=== PATIENT | female | born 1995 | race Caucasian/White ===

== ENCOUNTER 2017-09-13 14:51 | Emergency (ER) | payer BC ==
--- NOTE | 2017-09-13 15:52 | EDPHY ---
H & P Time Seen by Provider: 09/13/17 15:40 HPI/ROS: CHIEF COMPLAINT: Abdominal pain, can't find IUD string HISTORY OF PRESENT ILLNESS: 22-year-old female presents to the emergency department by private vehicle complaining of some lower abdominal discomfort. She has had an IUD for last 4 years and has not checked for the strings in it least a month. She states that she recently had intercourse with her and then check for the strings and could not find them. She states earlier today she had some lower abdominal discomfort although this is improving. She states initially was a sharp pain in her left lower quadrant. She feels no back pain. No urinary symptoms. She denies . No fevers or chills. No chest pain or difficulty breathing. REVIEW OF SYSTEMS: Constitutional: No fever, no chills. Eyes: No double or blurry vision. ENT: No sore throat. Respiratory: No cough, no shortness of breath. Cardiac: No chest pain. Gastrointestinal: Abdominal pain as above. No vomiting or diarrhea. Genitourinary: No dysuria. Musculoskeletal: No neck or back pain. Skin: No rashes. Neurological: No headache. Past Medical/Surgical History: Negative Social History: , student at [employer] Smoking Status: Never smoked Physical Exam: General Appearance: Alert, no distress. Afebrile. Eyes: Pupils equal and round. Extraocular motions are all intact. ENT: Mouth: Mucous membranes moist. Respiratory: No wheezing, rhonchi, or rales, lungs are clear to auscultation. Cardiovascular: Regular rate and rhythm. Gastrointestinal: Abdomen is soft. Nontender to palpate. No masses, rebound or guarding noted. No CVA tenderness bilaterally. Genitourinary: This was performed with Ashlie barboza at bedside. Normal female external genitalia. On speculum examination there was a thick, white adherent discharge consistent with candidiasis. Cervix is well visualized and is closed. It is not erythematous or bleeding. There was 1 string of the IUD noted at the os. Neurological: Alert and oriented x 3, cranial nerves II through XII grossly intact Skin: Warm and dry, no rashes. Musculoskeletal: Nontender to palpate along the cervical, thoracic or lumbar spine. Neck is supple. Extremities: Full range of motion and no peripheral edema. Psychiatric: Patient is oriented X 3, there is no agitation. Constitutional: Initial Vital Signs Temperature (C) 37 C 09/13/17 14:55 Heart Rate 72 09/13/17 14:55 Respiratory Rate 18 09/13/17 14:55 Blood Pressure 122/74 H 09/13/17 14:55 O2 Sat (%) 100 09/13/17 14:55 O2 Delivery Mode Room Air Allergies/Adverse Reactions: No Known Allergies Allergy (Unverified 09/13/17 14:54) Home Medications: Medication Instructions Recorded Fluconazole [Diflucan (*)] 150 mg PO ONCE #1 tab 09/13/17 Levonorgestrel [Mirena] 1 each IY 09/13/17 Sertraline HCl [Zoloft 100mg (*)] 100 mg PO DAILY 09/13/17 Medical Decision Making - Diagnostics Imaging Results: Imaging Impressions Pelvic/Renal Ultrasound 09/13/17 16:27 Impression: IUD is identified within the endometrial canal. The right arm appears malpositioned within the myometrium. The left arm of the IUD extends to the cornua. Results called to Danika Sands PA-C, at 5:45 PM. Imaging: Discussed imaging studies w/ puppet master Radiologist ED Course/Re-evaluation: 22-year-old female presents to the emergency department with lower abdominal discomfort and concerns about IUD displacement. Pelvic exam was initially performed and unable to visualize is both strings of the IUD. Pelvic ultrasound was ordered which revealed the body of the IUD in proper placement, however the right arm of the IUD was in the myometrium. I spoke with the on-call OBGYN, Dr. Luz Maria Snell, who will see this patient in follow-up. The patient is comfortable being discharged home. She understands that when her IUD is malposition, this may not be as functional or effective as a contraceptive. She was advised to use barrier methods. On examination the patient also had thick, white adherent discharge. I explained to the patient that she could likely have candidiasis. She states that she has been treated for this in the past. She was given a prescription for Diflucan. The patient is not concerned about sexually transmitted infections. She is monogamous with her . Differential Diagnosis: Including but not limited to sexually transmitted infection, , urinary tract infection, malposition IUD - Data Points Laboratory Results: 09/13/17 09/13/17 16:00 16:00 Urine Color YELLOW Urine Appearance CLEAR Urine pH 6.0 (5.0-7.5) Ur Specific [place] 1.004 (1.002-1.030) Urine Protein NEGATIVE (NEGATIVE) Urine Ketones NEGATIVE (NEGATIVE) Urine Blood NEGATIVE (NEGATIVE) Urine Nitrate NEGATIVE (NEGATIVE) Urine Bilirubin NEGATIVE (NEGATIVE) Urine Urobilinogen NEGATIVE EU EU (0.2-1.0) Ur Leukocyte Esterase NEGATIVE (NEGATIVE) Urine RBC 1-3 /hpf /hpf (0-3) Urine WBC 1-3 /hpf /hpf (0-3) Ur Epithelial Cells TRACE /lpf /lpf (NONE-1+) Urine Bacteria TRACE /hpf H /hpf (NONE SEEN) Urine Glucose NEGATIVE (NEGATIVE) Urine Test NEGATIVE Departure - Departure Disposition: Home, Routine, Self-Care Clinical Impression: Abdominal pain Qualifiers: Abdominal location: lower abdomen, unspecified Qualified Code(s): R10.30 - Lower abdominal pain, unspecified IUD strings lost Qualifiers: Encounter type: initial encounter Qualified Code(s): T83.32XA - Displacement of intrauterine contraceptive device, initial encounter Condition: Good Instructions: Acute Abdominal Pain (ED) Additional Instructions: Follow-up with OBGYN. You should use a barrier methods such as condoms with intercourse. Diflucan as directed once daily for yeast infection. Abdominal Pain: Return to the Emergency Department immediately for increasing pain, fever, vomiting, or if not completely better in 8-12 hours. Referrals: Luz Maria Snell MD [Medical Doctor] - As per Instructions Prescriptions: Fluconazole [Diflucan (*)] 150 mg PO ONCE #1 tab
[2017-09-13 18:25] VITALS: BP 123/54
== END 2017-09-13 18:24 | disposition home or self-care (01) ==
DX: T83.32XA Displacement of intrauterine contraceptive device, initial encounter (principal); Y73.2 Prosthetic and other implants, materials and accessory gastroenterology and urology devices associated with adverse incidents